=== PATIENT | female | born 1995 | race Caucasian/White ===

== ENCOUNTER 2020-08-11 14:45 | Outpatient (RCR) | payer OTHER | END 2020-11-09 | disposition home or self-care (01) | LOC: WSOH | DX: S61.232A Puncture wound without foreign body of right middle finger without damage to nail, initial encounter (principal); W55.01XA Bitten by cat, initial encounter; Z90.89 Acquired absence of other organs; Y99.0 Civilian activity done for income or pay ==

== ENCOUNTER → 2021-03-16 | Outpatient (CLI) | payer OTHER | LOC: COL.RAD 11:09 | DX: Z87.440 Personal history of urinary (tract) infections (principal) ==